=== PATIENT | male | born 1970 | race Two or more races ===

== ENCOUNTER 2023-03-14 11:37 | Emergency (ER) | payer MEDICAID ==
[~2023-03-14] VITALS: Ht 167.6 cm; Wt 78.2 kg
[2023-03-14 12:35] VITALS: BP 96/67
[2023-03-14 13:34] LABS: Urine Bacteria NONE SEEN /hpf (None Seen); Urine Blood 3+ /uL (Negative); Urine Hyaline Cast FEW /lpf (0 - 2); Urine Mucus FEW (None Seen); Urine Specific Gravity 1.018 (1.001-1.035); Urine WBC 5 /hpf (0 - 3)
== END 2023-03-14 11:52 | disposition left against medical advice (07) ==
LOC: ER 11:37 → EDBD 11:37 → ER 11:52
DX: R10.30 Lower abdominal pain, unspecified (principal); R11.2 Nausea with vomiting, unspecified; R94.31 Abnormal electrocardiogram [ECG] [EKG]; Z53.21 Procedure and treatment not carried out due to patient leaving prior to being seen by health care provider
CPT/HCPCS: 81001; 93005